=== PATIENT | male | born 1940 | race Hispanic/Latino ===

== ENCOUNTER 2017-05-21 16:40 | Emergency (ER) | payer MEDICARE ==
[~2017-05-21] VITALS: Ht 157.5 cm; Wt 77.6 kg
[~2017-05-21 16:40] MED LIST: B/P PILL PO; CHOLESTEROL PILL PO; CLEOCIN150 MG PO; MOTRIN800 MG OR; PENICILLN VK250 MG OR
[2017-05-21 21:00] VITALS: BP 140/78
== END 2017-05-21 21:10 | disposition left against medical advice (07) ==
LOC: ED 16:40
DX: R05 Cough (principal); I10 Essential (primary) hypertension; Z91.19 Patient's noncompliance with other medical treatment and regimen

== ENCOUNTER 2019-04-01 11:50 | Emergency (ER) | payer OTHER, MEDICARE ==
[~2019-04-01] VITALS: Ht 157.5 cm; Wt 75.9 kg
[2019-04-01] MEDS ORDERED: LORATADINE10 M4 PO (12:43)
[2019-04-01] MEDS ORDERED: METFORMIN500 M2 PO (12:44)
[2019-04-01] MEDS ORDERED: SIMVASTATIN40 MG PO (12:44)
[2019-04-01] MEDS ORDERED: AMLODIPINE BESYL5 MG PO (12:44)
[2019-04-01] MEDS ORDERED: MOTRIN400 MG PO (12:52)
[2019-04-01 12:55] VITALS: BP 149/89
== END 2019-04-01 12:55 | disposition home or self-care (01) | DRG 563 ==
LOC: ED 11:50
DX: S43.401A Unspecified sprain of right shoulder joint, initial encounter (principal); Y93.H1 Activity, digging, shoveling and raking